=== PATIENT | female | born 1985 | race Caucasian/White ===

== ENCOUNTER 2018-03-08 19:54 | Emergency (ER) | payer SELFPAY ==
[~2018-03-08] VITALS: Ht 167.6 cm; Wt 64.4 kg
[2018-03-08 20:36] VITALS: BP 92/56
== END 2018-03-08 23:58 | disposition home or self-care (01) ==
LOC: ER 19:54
DX: J35.8 Other chronic diseases of tonsils and adenoids (principal); L70.9 Acne, unspecified

== ENCOUNTER 2018-08-07 14:57 | Emergency (ER) | payer MEDICAID ==
[~2018-08-07] VITALS: Ht 167.6 cm; Wt 63.5 kg
[2018-08-07 15:55] LABS: Eosinophils # (auto) 0.1 uL; Lymphocytes # (auto) 1.9 uL; Neutrophils # (auto) 4.3 uL; Nucleated Red Blood Cells % 0.1 %
[2018-08-07 15:57] LABS: Basophils # (auto) 0 uL; Basophils % (auto) 0.6 % (0.0-2.0); Eosinophils % (auto) 1.1 % (0.0-7.0); Hematocrit 40.8 % (36.0-46.0); Hemoglobin 14.1 g/dL (12.2-16.2); Lymphocytes % (auto) 27.9 % (10.0-50.0); Mean Corpuscular Hemoglobin 33.5 pg (28.0-32.0); Mean Corpuscular Hgb Conc. 34.6 g/dL (32.0-36.0); Mean Corpuscular Volume 96.7 fL (80.0-100.0); Monocytes # (auto) 0.4 uL; Monocytes % (auto) 6.2 % (0.0-12.0); Neutrophils % (auto) 64.2 % (37.0-80.0); Platelet Count (auto) 215 10^3/uL (140-450); Red Blood Cells 4.23 10^6/uL (4.0-5.20); Red Cell Distribution Width 11.7 % (11.8-14.3); White Blood Cell 6.7 10^3/uL (4.4-10.8)
[2018-08-07 16:01] VITALS: BP 117/71
[2018-08-07 16:18] LABS: Partial Thromboplastin Time 26.4 sec (23.78-33.04); Prothrombin Time 10.7 sec (9.27-12.13)
[2018-08-07 17:39] LABS: Urine Bacteria FEW /hpf (None Seen); Urine Blood 3+ /uL (Negative); Urine WBC 2 /hpf (0 - 5)
== END 2018-08-07 17:54 | disposition home or self-care (01) ==
LOC: ER 14:57
DX: N93.9 Abnormal uterine and vaginal bleeding, unspecified (principal); N83.201 Unspecified ovarian cyst, right side; F17.210 Nicotine dependence, cigarettes, uncomplicated; Z88.8 Allergy status to other drugs, medicaments and biological substances
CPT/HCPCS: 36415; 76817; 76856; 81001; 81025; 84702; 85025; 85610; 85730; 99285; J7030

== ENCOUNTER 2018-10-30 21:51 | Emergency (ER) | payer MEDICAID ==
[~2018-10-30] VITALS: Ht 167.6 cm; Wt 63.5 kg
[2018-10-30] MEDS ORDERED: ONDANSETRON HCL 4 MG/2 ML VIAL ONE (22:03)
[2018-10-30] MEDS ORDERED: HYDROmorphone HCL 2 MG/ML VL ONE (22:03)
[2018-10-30] MEDS ORDERED: HYDROmorphone HCL 2 MG/ML VL IV ONE (22:15)
[2018-10-30] MEDS ORDERED: ONDANSETRON HCL 4 MG/2 ML VIAL IV ONE (22:15)
[2018-10-30 22:31] VITALS: BP 142/84
[2018-10-30] MEDS ORDERED: PROPOFOL 10 MG/ML 20 ML IV ONE ×2 (22:45→23:30)
== END 2018-10-31 00:25 | disposition home or self-care (01) ==
LOC: ER 21:53
DX: S82.851A Displaced trimalleolar fracture of right lower leg, initial encounter for closed fracture (principal); F17.210 Nicotine dependence, cigarettes, uncomplicated; Z88.6 Allergy status to analgesic agent; W01.0XXA Fall on same level from slipping, tripping and stumbling without subsequent striking against object, initial encounter; Y93.02 Activity, running; Y92.89 Other specified places as the place of occurrence of the external cause; Y99.8 Other external cause status
CPT/HCPCS: 27818; 73600; 73610; 96374; 96375; 99152; 99285; J1170; J2405; J2704

== ENCOUNTER 2019-08-21 12:02 | Emergency (ER) | payer MEDICAID ==
[~2019-08-21] VITALS: Ht 167.6 cm; Wt 64.4 kg
[2019-08-21 12:10] VITALS: BP 139/87
[2019-08-21] MEDS ORDERED: LORazepam 0.5 MG TAB PO ONE (13:30)
[2019-08-21] MEDS ORDERED: KETOROLAC TROMETH 60MG/2ML VIAL IM ONE (13:30)
== END 2019-08-21 14:20 | disposition home or self-care (01) ==
LOC: ER 12:02
DX: R51 Headache (principal); F41.9 Anxiety disorder, unspecified; F17.210 Nicotine dependence, cigarettes, uncomplicated
CPT/HCPCS: 70450; 96372; 99284; J1885

== ENCOUNTER 2019-12-20 10:37 | Emergency (ER) | payer MEDICAID ==
[~2019-12-20] VITALS: Ht 167.6 cm; Wt 62.8 kg
[2019-12-20 10:55] VITALS: BP 122/79
[2019-12-20] MEDS ORDERED: ONDANSETRON ODT 4 MG TAB PO ONE (12:45)
[2019-12-20] MEDS ORDERED: KETOROLAC TROMETH 60MG/2ML VIAL IM ONE (12:45)
[2019-12-20] MEDS ORDERED: diphenhdrAMINE HCL 50 MG/1 ML VL IM ONE (12:45)
== END 2019-12-20 13:21 | disposition home or self-care (01) ==
LOC: ER 10:37
DX: G43.909 Migraine, unspecified, not intractable, without status migrainosus (principal); R11.2 Nausea with vomiting, unspecified; F17.210 Nicotine dependence, cigarettes, uncomplicated; Z88.8 Allergy status to other drugs, medicaments and biological substances
CPT/HCPCS: 96372; 99284; J1200; J1885; Q0162